=== PATIENT | female | born 1960 | race Two or more races ===

== ENCOUNTER 2021-11-25 05:40 | Day surgery (SDC) | payer OTHER ==
[~2021-11-25 05:40] MED LIST: SYNTHROID75 MCG PO
== END 2021-11-25 13:50 | disposition home or self-care (01) ==
LOC: CIR.AMB 05:40
PROVIDERS: ATTEND Plastic Surgery
DX: N62 Hypertrophy of breast (principal); Z20.822 Contact with and (suspected) exposure to COVID-19; E03.9 Hypothyroidism, unspecified